=== PATIENT | male | born 2000 | race Caucasian/White ===

== ENCOUNTER 2024-10-23 21:13 | Emergency (ER) | payer OTHER ==
[2024-10-23 21:31] LABS: BASOPHILS PERCENT AUTO 0.4 % (0.0-1.0); EOSINOPHILS ABSOLUTE AUTO 0.4 K/mm3 (0.0-0.4); EOSINOPHILS PERCENT AUTO 3.9 % (0.0-6.0); HEMOGLOBIN 18.6 gm/dl (14.0-18.0); IMMATURE GRAN ABSOLUTE AUTO 0.02 K/mm3 (0.00-0.05); IMMATURE GRAN PERCENT AUTO 0.2 % (0.0-0.4); LYMPHOCYTES ABSOLUTE AUTO 2.6 K/mm3 (1.0-4.8); LYMPHOCYTES PERCENT AUTO 25.9 % (24.0-44.0); MEAN CORPUSCULAR HEMOGLOBIN 30.1 pg (28.0-32.0); MEAN CORPUSCULAR HGB CONC 35.8 g/dl (32.0-36.0); MEAN CORPUSCULAR VOLUME 84.3 fl (83.0-99.0); MEAN PLATELET VOLUME 9.9 fl (9.4-12.4); MONOCYTES ABSOLUTE AUTO 0.6 K/mm3 (0.0-0.8); MONOCYTES PERCENT AUTO 6.3 % (0.0-8.0); NEUTROPHILS ABSOLUTE AUTO 6.3 K/mm3 (1.8-7.7); NEUTROPHILS PERCENT AUTO 63.3 % (41.0-71.0); PLATELET COUNT,PLT 251 K/mm3 (150-400); RED BLOOD CELL COUNT 6.17 M/mm3 (4.52-5.90); WHITE BLOOD CELL COUNT,WBC 9.92 K/mm3 (3.9-11.3)
[2024-10-23] MEDS: Aspirin 81 MG Tab.Chew PO ONE (21:40)
[2024-10-23] MEDS: Sodium Chloride 0.9% 10 ML Syringe FLUSH PRN (21:41)
[2024-10-23 21:57] LABS: A/G RATIO 1.1 (1-2); ALBUMIN 4.1 g/dl (3.4-5.0); ANION GAP 9.6 (5-15); BILIRUBIN TOTAL 0.4 mg/dL (0.2-1.0); BUN/CREATININE RATIO 12.1 (14-18); CREATININE 1.4 mg/dL (0.7-1.3); EST CRCL DRUG DOSING (CG) 82.56 mL/min; PROTEIN TOTAL,TP 7.9 g/dl (6.4-8.2)
[2024-10-23 22:04] LABS: POTASSIUM,K 3.6 mEq/L (3.5-5.1)
[2024-10-23] MEDS: Sodium Chloride 0.9% 1,000 ML IV ONE (22:15)
[2024-10-23] MEDS: Ketorolac 30 MG/ML SDV IVPUSH ONE (22:37)
[2024-10-23 23:30] VITALS: BP 130/73; PULSE 74
== END 2024-10-23 23:25 | disposition home or self-care (01) ==
LOC: JD.ED 21:13
DX: R07.9 Chest pain, unspecified (principal)
CPT/HCPCS: 36415; 71045; 80053; 83735; 84484; 85025; 93005; 96361; 96374; 99285; A9270; J1885; J7030; 99283